=== PATIENT | male | born 1965 | race Two or more races ===

== ENCOUNTER 2017-12-31 22:17 | Emergency (ER) | payer SELFPAY ==
[~2017-12-31] VITALS: Ht 175.3 cm; Wt 100.0 kg
[2018-01-01 00:31] VITALS: BP 122/72
== END 2018-01-01 00:31 | disposition home or self-care (01) ==
LOC: ER 22:17
DX: Z13.89 Encounter for screening for other disorder (principal); R53.1 Weakness; F91.8 Other conduct disorders; R03.0 Elevated blood-pressure reading, without diagnosis of hypertension; F10.10 Alcohol abuse, uncomplicated; Y90.9 Presence of alcohol in blood, level not specified; Z59.0 Homelessness
CPT/HCPCS: 99283